=== PATIENT | female | born 1960 | race Two or more races ===

== ENCOUNTER 2016-11-11 12:19 | Emergency (ER) | payer BC ==
--- NOTE | 2016-11-11 12:27 | ER Document Report ---
ED Medical Screen (RME) <JILLIANMAXIMO - Last Filed: 11/11/16 12:24> <MAXIMUS HENSLEY - Last Filed: 11/13/16 05:38> - General Stated Complaint: COUGH Notes: 56 yo female c/o cough x 1 month, worse x last week. cough worse at night. productive. no fever. no hx/o pneumonia. lungs CTA, Sat 95% (MAXIMO WALSH) - Related Data Allergies/Adverse Reactions: No Known Allergies Allergy (Verified 03/18/14 13:23) Past Medical History - Past Medical History Cardiac Medical History: Reports: Hx Coronary Artery Disease, Hx Heart Attack - x2, Hx Hypercholesterolemia, Hx Hypertension Denies: Hx Atrial Fibrillation, Hx Congestive Heart Failure, Hx DVT Psychiatric Medical History: Reports: Hx Anxiety Past Surgical History: Reports: Hx Cardiac Catheterization - x 2( last 06/2012) , Hx Tubal Ligation - Immunizations Hx Diphtheria, Pertussis, Tetanus Vaccination: Yes - 2007 <WALSHMAXIMO - Last Filed: 11/11/16 12:24> Course - Laboratory Result Diagrams: 11/11/16 12:30 11/11/16 12:30 <MAXIMUS HENSLEY - Last Filed: 11/13/16 05:38> - Vital Signs Vital signs: Temp Pulse Resp BP Pulse Ox 98.3 F 78 16 147/78 H 93 11/11/16 17:22 11/11/16 17:22 11/11/16 17:22 11/11/16 17:22 11/11/16 17:22 - Laboratory Laboratory results interpreted by me: 11/11/16 11/11/16 12:30 12:30 Plt Count 583 H Sodium 145.8 H Doctor's Discharge <JILLIANMAXIMO - Last Filed: 11/11/16 12:24> <MAXIMUS HENSLEY - Last Filed: 11/13/16 05:38> - Discharge Clinical Impression: Pneumonia Condition: Stable Disposition: HOME, SELF-CARE Instructions: Azithromycin ([facility]), Corticosteroid Medication ([facility]), Pneumonia ( [facility]) Additional Instructions: REST, DRINK PLENTY OF FLUIDS. MEDS DIRECTED. FOLLOW UP WITH DR. CALVERT IF NOT IMPROVING IN 3-4 DAYS. RETURN TO E.R. IF YOU GET WORSE, ANY TIME. Prescriptions: Azithromycin [Zithromax 250 mg Tablet] 250 mg PO ASDIR PRN #6 tablet PRN Reason: Prednisone 10 mg PO QID #12 tablet Referrals: ITZEL CALVERT MD [Primary Care Provider] - Follow up as needed
[2016-11-11 12:58] LABS: ABSOLUTE BASOPHILS # (AUTO) 0.1 10^3/uL (0.0-0.2); ABSOLUTE EOSINOPHILS # (AUTO) 0.2 10^3/uL (0.0-0.6); ABSOLUTE MONOCYTES (AUTO) 0.8 10^3/uL (0.1-1.4); ABSOLUTE NEUT (AUTO) 6.4 10^3/uL (1.7-8.2); BASOPHILS % (AUTO) 1.4 % (0-2); EOSINOPHILS % (AUTO) 1.8 % (0-6); HEMATOCRIT 40.6 % (36.0-47.0); HEMOGLOBIN 13.5 g/dL (12.0-15.5); HGB HCT DIFFERENCE -0.1; LYMPHOCYTES % (AUTO) 20.9 % (13-45); MEAN CORPUSCULAR HEMOGLOBIN 28.4 pg (27.0-33.4); MEAN CORPUSCULAR HGB CONC 33.3 g/dL (32.0-36.0); MEAN CORPUSCULAR VOLUME 85 fl (80-97); MONOCYTES % (AUTO) 8.8 % (3-13); RED BLOOD COUNT 4.76 10^6/uL (3.72-5.28); RED CELL DISTRIBUTION WIDTH 13.4 % (11.5-14.0); SEGMENTED NEUTROPHILS % (AUTO) 67.1 % (42-78); WHITE BLOOD COUNT 9.5 10^3/uL (4.0-10.5)
[2016-11-11 13:07] LABS: ALANINE AMINOTRANSFERASE 31 U/L (9-52); ALBUMIN 4.1 g/dL (3.5-5.0); ALKALINE PHOSPHATASE 125 U/L (38-126); ANION GAP 15 (5-19); ASPARTATE AMINO TRANSFERASE 21 U/L (14-36); BILIRUBIN,DIRECT 0.2 mg/dL (0.0-0.4); BILIRUBIN,TOTAL 0.7 mg/dL (0.2-1.3); BLOOD UREA NITROGEN 12 mg/dL (7-20); CALCIUM 9.8 mg/dL (8.4-10.2); CARBON DIOXIDE 25 mmol/L (22-30); CHLORIDE 106 mmol/L (98-107); CREATININE RESULT 0.53 mg/dL (0.52-1.25); GLUCOSE 97 mg/dL (75-110); POTASSIUM 4.2 mmol/L (3.6-5.0); SODIUM 145.8 mmol/L (137-145); TOTAL PROTEIN 7.5 g/dL (6.3-8.2)
--- NOTE | 2016-11-11 16:49 | ER Document Report ---
ED Respiratory Problem - General Chief Complaint: Cough Stated Complaint: COUGH Mode of Arrival: Ambulatory Information source: Patient TRAVEL OUTSIDE OF THE [place] IN LAST 30 DAYS: No - HPI Patient complains to provider of: Cough Onset: Other - 1 MONTH Duration: Intermittent episodes Initiating Event: URI Quality of pain: Other - SORENESS Context: denies: Hx asthma, Hx COPD, Smoker Cough: Nonproductive Associated symptoms: Cough. denies: Chills, Fever, Wheezing Similar symptoms previously: No Recently seen / treated by doctor: No - Related Data Allergies/Adverse Reactions: No Known Allergies Allergy (Verified 03/18/14 13:23) Past Medical History - General Information source: Patient - Social History Smoking Status: Unknown if Ever Smoked Chew tobacco use (# tins/day): No Frequency of alcohol use: None Drug Abuse: None Lives with: Spouse/Significant other Family History: CAD Patient has suicidal ideation: No Patient has homicidal ideation: No - Past Medical History Cardiac Medical History: Reports: Hx Coronary Artery Disease, Hx Heart Attack - x2, Hx Hypercholesterolemia, Hx Hypertension Denies: Hx Atrial Fibrillation, Hx Congestive Heart Failure, Hx DVT Renal/ Medical History: Denies: Hx Peritoneal Dialysis Psychiatric Medical History: Reports: Hx Anxiety Past Surgical History: Reports: Hx Cardiac Catheterization - x 2( last 06/2012) , Hx Tubal Ligation - Immunizations Hx Diphtheria, Pertussis, Tetanus Vaccination: Yes - 2007 Review of Systems - Review of Systems Constitutional: No symptoms reported. denies: Chills, Diaphoresis EENT: No symptoms reported Cardiovascular: No symptoms reported Respiratory: See HPI Gastrointestinal: No symptoms reported Genitourinary: No symptoms reported Female Genitourinary: Post menopausal Musculoskeletal: No symptoms reported Skin: No symptoms reported Neurological/Psychological: No symptoms reported Physical Exam - Vital signs Vitals: Temp Pulse Resp BP Pulse Ox 98.5 F 82 14 149/80 H 95 11/11/16 12:23 11/11/16 12:23 11/11/16 12:23 11/11/16 12:23 11/11/16 12:23 Interpretation: Hypertensive. No: Tachycardic, Tachypneic, Febrile - General General appearance: Appears well, Alert In distress: None - HEENT Head: Normocephalic Eyes: Normal Conjunctiva: Normal Ears: Normal Nasal: Normal Mouth/Lips: Normal Mucous membranes: Normal - Respiratory Respiratory status: No respiratory distress Breath sounds: Rhonchi - BILAT. BASES, MORE ON RIGHT - Cardiovascular Rhythm: Regular Heart sounds: Normal auscultation - Abdominal Inspection: Normal Distension: No distension Bowel sounds: Normal - Back Back: Normal - Extremities General upper extremity: Normal inspection General lower extremity: Normal inspection - Neurological Neuro grossly intact: Yes Cognition: Normal Orientation: AAOx4 - Psychological Associated symptoms: Normal affect, Normal mood - Skin Skin Temperature: Warm Skin Moisture: Dry Skin Color: Normal Skin Turgor: Elastic Course - Vital Signs Vital signs: Temp Pulse Resp BP Pulse Ox 98.5 F 82 14 149/80 H 95 11/11/16 12:23 11/11/16 12:23 11/11/16 12:23 11/11/16 12:23 11/11/16 12:23 - Laboratory Result Diagrams: 11/11/16 12:30 11/11/16 12:30 Laboratory results interpreted by me: 11/11/16 11/11/16 12:30 12:30 Plt Count 583 H Sodium 145.8 H Discharge - Discharge Clinical Impression: Pneumonia Qualifiers: Pneumonia type: due to unspecified organism Laterality: right Lung location: lower lobe of lung Qualified Code(s): J18.1 - Lobar pneumonia, unspecified organism Condition: Stable Disposition: HOME, SELF-CARE Instructions: Pneumonia ([facility]), Azithromycin ([facility]), Corticosteroid Medication ( [facility]) Additional Instructions: REST, DRINK PLENTY OF FLUIDS. MEDS DIRECTED. FOLLOW UP WITH DR. CALVERT IF NOT IMPROVING IN 3-4 DAYS. RETURN TO E.R. IF YOU GET WORSE, ANY TIME. Prescriptions: Azithromycin [Zithromax 250 mg Tablet] 250 mg PO ASDIR PRN #6 tablet PRN Reason: Prednisone 10 mg PO QID #12 tablet Referrals: ITZEL CALVERT MD [Primary Care Provider] - Follow up as needed
[2016-11-11 17:31] VITALS: BP 147/78
== END 2016-11-11 17:32 | disposition home or self-care (01) ==
LOC: ER 12:19
DX: J18.1 Lobar pneumonia, unspecified organism (principal); R05 Cough
CPT/HCPCS: 36415; 71020; 80053; 85025; 99284

== ENCOUNTER 2016-11-16 00:43 | Emergency (ER) | payer BC ==
[2016-11-16] MEDS ORDERED: HYDROCODONE/ACETAMINOPHEN 5-325 MG TABLET PO ONE (04:04)
[2016-11-16 05:30] LABS: ABSOLUTE BASOPHILS # (AUTO) 0.1 10^3/uL (0.0-0.2); ABSOLUTE LYMPHOCYTES (AUTO) 1.9 10^3/uL (0.5-4.7); ABSOLUTE MONOCYTES (AUTO) 1.1 10^3/uL (0.1-1.4); ABSOLUTE NEUT (AUTO) 7.6 10^3/uL (1.7-8.2); BASOPHILS % (AUTO) 0.5 % (0-2); EOSINOPHILS % (AUTO) 0.4 % (0-6); HEMOGLOBIN 13.4 g/dL (12.0-15.5); HGB HCT DIFFERENCE 0.2; MEAN CORPUSCULAR HEMOGLOBIN 28.7 pg (27.0-33.4); MEAN CORPUSCULAR HGB CONC 33.4 g/dL (32.0-36.0); MEAN CORPUSCULAR VOLUME 86 fl (80-97); MONOCYTES % (AUTO) 10.6 % (3-13); RED BLOOD COUNT 4.66 10^6/uL (3.72-5.28); RED CELL DISTRIBUTION WIDTH 13.7 % (11.5-14.0); SEGMENTED NEUTROPHILS % (AUTO) 70.5 % (42-78); WHITE BLOOD COUNT 10.7 10^3/uL (4.0-10.5)
[2016-11-16] MEDS ORDERED: LEVOFLOXACIN 750 MG TABLET PO ONE (05:45)
[2016-11-16 05:50] LABS: ALANINE AMINOTRANSFERASE 34 U/L (9-52); ALBUMIN 3.8 g/dL (3.5-5.0); ALKALINE PHOSPHATASE 95 U/L (38-126); ANION GAP 14 (5-19); ASPARTATE AMINO TRANSFERASE 19 U/L (14-36); BILIRUBIN,DIRECT 0.2 mg/dL (0.0-0.4); BILIRUBIN,TOTAL 0.5 mg/dL (0.2-1.3); BLOOD UREA NITROGEN 17 mg/dL (7-20); CALCIUM 9.3 mg/dL (8.4-10.2); CARBON DIOXIDE 22 mmol/L (22-30); CHLORIDE 107 mmol/L (98-107); CREATININE RESULT 0.52 mg/dL (0.52-1.25); GLUCOSE 104 mg/dL (75-110); POTASSIUM 4.3 mmol/L (3.6-5.0); SODIUM 142.6 mmol/L (137-145)
[2016-11-16] MEDS ORDERED: NORMAL SALINE 1000 ML 1,000 ML IV ONE (06:06)
--- NOTE | 2016-11-16 07:23 | ER Document Report ---
ED Respiratory Problem - General Chief Complaint: Rib Pain Stated Complaint: RIB PAIN/RIGHT SIDE Mode of Arrival: Ambulatory Information source: Patient Notes: 56-year-old female presents to the emergency department complaining of progressively worsening right lower chest/rib pain over the last 6 days. Patient reports was seen emergency department approximately 5 days ago and diagnosed with pneumonia. States took course of azithromycin as directed but symptoms are persistent. Reports right lower chest pain worse with deep breathing seems to be worse today. States pain is sharp and non-radiating. Reports associated nonproductive cough and mild shortness of breath. Denies fever, hemoptysis, nausea or vomiting. TRAVEL OUTSIDE OF THE [place] IN LAST 30 DAYS: No - HPI Patient complains to provider of: Cough, Hurts to breath Onset: Last week Duration: Worse/persistent Initiating Event: URI Quality of pain: Sharp Severity: Moderate Pain Level: 3 Short of Breath: Mild Chest pain/discomfort: Right Cough: Nonproductive At home treatment: Oral steroids Similar symptoms previously: Yes Recently seen / treated by doctor: Yes - Related Data Allergies/Adverse Reactions: No Known Allergies Allergy (Verified 11/16/16 01:25) Past Medical History - General Information source: Patient - Social History Smoking Status: Never Smoker Frequency of alcohol use: None Drug Abuse: None Lives with: Family Family History: CAD Patient has suicidal ideation: No Patient has homicidal ideation: No - Past Medical History Cardiac Medical History: Reports: Hx Coronary Artery Disease, Hx Heart Attack - x2, Hx Hypercholesterolemia, Hx Hypertension Denies: Hx Atrial Fibrillation, Hx Congestive Heart Failure, Hx DVT Renal/ Medical History: Denies: Hx Peritoneal Dialysis Psychiatric Medical History: Reports: Hx Anxiety Past Surgical History: Reports: Hx Cardiac Catheterization - x 2( last 06/2012) , Hx Tubal Ligation - Immunizations Hx Diphtheria, Pertussis, Tetanus Vaccination: Yes - 2007 Review of Systems - Review of Systems Constitutional: No symptoms reported EENT: No symptoms reported Cardiovascular: No symptoms reported Respiratory: See HPI Gastrointestinal: No symptoms reported Genitourinary: No symptoms reported Female Genitourinary: No symptoms reported Musculoskeletal: No symptoms reported Skin: No symptoms reported Hematologic/Lymphatic: No symptoms reported Neurological/Psychological: No symptoms reported -: Yes All other systems reviewed and negative Physical Exam - Vital signs Vitals: Temp Pulse Resp BP Pulse Ox 98.8 F 94 18 135/90 H 95 11/16/16 01:25 11/16/16 01:25 11/16/16 01:25 11/16/16 01:25 11/16/16 01:25 - General General appearance: Appears well, Alert In distress: None - HEENT Head: Normocephalic, Atraumatic Eyes: Normal Pupils: PERRL Ears: Normal External canal: Normal Tympanic membrane: Normal Sinus: Normal Nasal: Normal Mouth/Lips: Normal Mucous membranes: Normal, Moist Pharynx: Normal Neck: Normal - Respiratory Respiratory status: No respiratory distress, Other - Shallow breaths due to pain. No: Labored, Tachypnea Chest status: Nontender, Pain with cough, Pain with deep breathing Breath sounds: Normal Chest palpation: Normal. No: Flail segment, [place] frothy sputum, Purulent sputum , Subcutaneous emphysema, Sucking chest wound, Tender, Ecchymosis, Wounds, Other - Cardiovascular Rhythm: Regular Heart sounds: Normal auscultation Murmur: No Pulses: Normal: Radial, Posterior tibial, Dorsalis pedis Normal capillary refill: Yes - Abdominal Inspection: Normal Distension: No distension Bowel sounds: Normal Tenderness: Nontender Organomegaly: No organomegaly - Extremities General upper extremity: Normal inspection, Nontender, Normal color, Normal ROM , Normal strength, Normal temperature. No: Edema General lower extremity: Normal inspection, Nontender, Normal color, Normal ROM , Normal strength, Normal temperature, Normal weight bearing. No: Edema, Ximena' s sign - Neurological Neuro grossly intact: Yes Cognition: Normal Orientation: AAOx4 [place] Coma Scale Eye Opening: Spontaneous Duncan Coma Scale Verbal: Oriented [place] Coma Scale Motor: Obeys Commands Duncan Coma Scale Total: 15 Speech: Normal Motor strength normal: LUE, RUE, LLE, RLE Sensory: Normal - Skin Skin Temperature: Warm Skin Moisture: Dry Skin Color: Normal Course - Re-evaluation Re-evalutation: 11/16/16 07:53 Patient hemodynamically stable, in no distress, afebrile. Patient able to ambulate independently and room air without desaturation or dyspnea. Labs unremarkable. Chest x-ray shows persistent area of consolidation right lower lobe. CTA was obtained after consultation with ED physician Dr. Young due to concern for possible PE secondary to pain worse with breathing and lack of fever , leukocytosis, and productive cough. CTA was negative for PE and showed area of pneumonic consolidation. Patient appears stable for outpatient treatment as curb 65 score is 0 and pneumonia severity index score is <51 (47 = low risk). Will prescribe course of Levaquin. Patient agrees with home care, follow-up with PCP, ED return precautions. - Vital Signs Vital signs: Temp Pulse Resp BP Pulse Ox 98.8 F 94 19 143/92 H 94 11/16/16 01:25 11/16/16 01:25 11/16/16 05:20 11/16/16 05:20 11/16/16 05:33 Selected Entries 11/16/16 11/16/16 01:25 05:20 Heart Rate ( 74 Monitors) Respiratory 19 Rate Blood Pressure 143/92 H O2 Sat by Pulse 95 Oximetry - Laboratory Result Diagrams: 11/16/16 04:40 11/16/16 04:40 Laboratory results interpreted by me: 11/16/16 04:40 WBC 10.7 H Plt Count 457 H - Diagnostic Test Radiology reviewed: Image reviewed, Reports reviewed Discharge - Discharge Clinical Impression: Pneumonia Qualifiers: Pneumonia type: due to unspecified organism Laterality: right Lung location: lower lobe of lung Qualified Code(s): J18.1 - Lobar pneumonia, unspecified organism Condition: Stable Disposition: HOME, SELF-CARE Additional Instructions: PNEUMONIA: Your examination indicates that you have pneumonia. This is an infection of the lung tissue, usually caused by bacteria or a virus. Symptoms include cough, fever, shaking chills, chest pain, shortness of breath, and coughing up bloody sputum. Treatment for bacterial pneumonia includes rest, antibiotics for 10 to 14 days, increasing your clear liquid intake, a cool mist humidifier at your bedside, and fever medication. Often, a repeat chest X-ray is performed in a few weeks--even if you feel better--to ascertain whether the infection has completely resolved and no underlying lung problem is present. You should call the physician if you develop persistent vomiting, high fever that does not respond to fever medication, increasing shortness of breath , confusion, or lethargy. Also, failure to improve within two to three days is an indication for re-examination. Atelectasis Your symptoms are due to partial collapse of the lung, called atelectasis. When lung air sacs aren't filled properly with air, they can collapse. This is common after surgery. It may occur whenever breathing is weak or painful. To correct the collapse, we need to get your lung air sacs to open. Do breathing exercises for the next two days. Every 15 minutes while awake, rapidly suck in a full breath and hold it a few seconds. Sometimes we'll prescribe a machine to measure your progress. Call or return if there's increasing shortness of breath, fever or chills, increasing chest pain, productive cough, or coughing of blood. ANTIBIOTIC THERAPY: You have been given an antibiotic prescription. It's important that you take all the medication, unless instructed otherwise by your physician. Failure to complete the entire course can result in relapse of your condition. Common side effects of antibiotics include nausea, intestinal cramping, or diarrhea. Women may develop vaginal yeast infections, and babies can get yeast (thrush) in the mouth following the use of antibiotics. Contact your physician if you develop significant side effects from this medication. Allergy to this antibiotic can result in hives, wheezing, faintness, or itching. If symptoms of allergy occur, stop the medication and call the doctor. LEVOFLOXACIN: You have been given an antibacterial agent, levofloxacin (Levaquin). This medicine is not related to the penicillins, sulfas, cephalosporins, or tetracyclines. It is often given to patients who are allergic to these drugs. It has been chosen for you either because other drugs are not appropriate, or because of the nature of your problem. Levaquin should not be taken with antacids, as these can decrease its effectiveness. It can be taken without regard to meals. LEVAQUIN SHOULD NOT BE TAKEN BY CHILDREN, NURSING WOMEN, OR WOMEN. Although Levaquin is usually well-tolerated, common side effects can include nausea and diarrhea. Contact your doctor if you experience any unusual symptoms while on this medication, such as joint pain or swelling, shortness of breath, wheezing, faintness, or hives. Oral Narcotic Medication You have been given a prescription for pain control. This medication is a narcotic. It's best taken with food, as nausea can result if taken on an empty stomach. Don't operate machinery or drive within six hours of taking this medication. Do not combine this medicine with alcohol, or with any medication which can cause sedation (such as cold tablets or sleeping pills) unless you get permission from the physician. Narcotics tend to cause constipation. If possible, drink plenty of fluids and eat a diet high in fiber and fruits. FOLLOW-UP CARE: Continue taking your previously prescribed medications as directed. Drink plenty of fluids. Follow-up with your primary care provider tomorrow. Return to the Emergency Department for any worsening symptoms or concerns. Prescriptions: Hydrocodone/Acetaminophen [[place] 5-325 mg Tablet] 1 tab PO Q6H PRN #10 tablet PRN Reason: Levofloxacin [Levaquin 750 mg Tablet] 750 mg PO DAILY 7 Days Forms: Elevated Blood Pressure Referrals: ITZEL CALVERT MD [Primary Care Provider] - Follow up tomorrow
[2016-11-16 09:55] VITALS: BP 144/86
== END 2016-11-16 09:55 | disposition home or self-care (01) ==
LOC: ER 00:43
DX: J18.1 Lobar pneumonia, unspecified organism (principal); R07.81 Pleurodynia; R05 Cough; R06.02 Shortness of breath
CPT/HCPCS: 99285; 36415; 85025; 80053; 71020; 71275; J7030

== ENCOUNTER → 2016-12-16 | Outpatient (CLI) | payer BC | LOC: RAD 10:38 | PROVIDERS: ATTEND Internal Medicine | DX: J18.1 Lobar pneumonia, unspecified organism (principal) | CPT/HCPCS: 71020 ==

== ENCOUNTER → 2017-04-27 | Outpatient (CLI) | payer BC ==
[2017-04-27 14:17] LABS: THYROID STIMULATING HORMONE 0.23 uIU/mL (0.47-4.68)
== END ==
LOC: OD 12:04
PROVIDERS: ATTEND Internal Medicine
DX: E03.8 Other specified hypothyroidism (principal)
CPT/HCPCS: 36415; 84439; 84443

== ENCOUNTER 2018-02-06 13:54 | Emergency (ER) | payer BC ==
[2018-02-06] MEDS ORDERED: MORPHINE SULFATE 10 MG/ML INJ IV ONE (14:59)
[2018-02-06] MEDS ORDERED: DIPH/PERTUSS(ACELL)/TETANUS VAC/PF 0.5 ML SYR (>=10YO) IM ONE (15:00)
--- NOTE | 2018-02-06 15:03 | ER Document Report ---
ED Fall - General Chief Complaint: Fall Stated Complaint: FALL Time Seen by Provider: 02/06/18 14:58 Information source: Patient Notes: Patient is a 57-year-old female that presents today status post fall from a tree. Patient fell 10 feet from a tree cutting down tree limbs. witnessed the fall as he was holding the lateral. Patient fell onto grass. Patient fell onto the back of her head. No loss of consciousness. Patient is not on blood thinning medications. Patient was holding a chain saw that was not active and this hit her in the chin when she fell. Patient complains of pain only to her chin. She actually denies any headache, neck pain, rib pain, back pain, or extremity pain. Last tetanus shot is unknown. TRAVEL OUTSIDE OF THE [place] IN LAST 30 DAYS: No - HPI Occurred: Just prior to arrival Where: Outdoors Context: Fell from height Associated symptoms: None Location of injury/pain: Other - See above Quality of pain: [place]y Severity: Mild Pain Level: 2 Prehospital interventions: C-collar - Related data Allergies/Adverse Reactions: No Known Allergies Allergy (Verified 11/16/16 01:25) Past Medical History - General Information source: Patient - Social History Smoking Status: Unknown if Ever Smoked Cigarette use (# per day): No Chew tobacco use (# tins/day): No Smoking Education Provided: No Frequency of alcohol use: None Drug Abuse: None Family History: CAD - Past Medical History Cardiac Medical History: Reports: Hx Coronary Artery Disease, Hx Heart Attack - x2, Hx Hypercholesterolemia, Hx Hypertension Denies: Hx Atrial Fibrillation, Hx Congestive Heart Failure, Hx DVT Renal/ Medical History: Denies: Hx Peritoneal Dialysis Psychiatric Medical History: Reports: Hx Anxiety Past Surgical History: Reports: Hx Cardiac Catheterization - x 2( last 06/2012) , Hx Tubal Ligation - Immunizations Hx Diphtheria, Pertussis, Tetanus Vaccination: Yes - 2007 Review of Systems - Review of Systems EENT: denies: Blurred vision, Nose discharge Cardiovascular: denies: Chest pain, Dizziness, Lightheaded Respiratory: denies: Cough, Short of breath Gastrointestinal: denies: Vomiting Musculoskeletal: denies: Leg swelling Neurological/Psychological: Other - no slurred speech -: Yes All other systems reviewed and negative Physical Exam - Vital signs Vitals: Temp Pulse Resp Pulse Ox 98.7 F 102 H 14 96 02/06/18 13:55 02/06/18 13:55 02/06/18 13:55 02/06/18 13:55 Notes: Reviewed vital signs and nursing note as charted by RN. CONSTITUTIONAL: Alert and oriented and responds appropriately to questions. Well -appearing; well-nourished HEAD: Normocephalic; atraumatic EYES: PERRL; Conjunctivae clear, sclerae non-icteric ENT: Normal nose; no rhinorrhea; stellate laceration to the chin with some swelling. Cervical collar is currently in place and I am not able to fully examine the mandible NECK: Supple without meningismus; non-tender along the midline spine with no step-offs noted CARD: Regular rate and rhythm; no murmurs, symmetric distal pulses RESP: Normal chest excursion without splinting or tachypnea; no tenderness to the anterior posterior ribs upon palpation; breath sounds clear and equal bilaterally ABD/GI: Normal bowel sounds; non-distended; soft, non-tender to deep palpation of all 4 quadrants of the abdomen BACK: The back appears normal and is non-tender to palpation EXT: Normal ROM in all joints; non-tender to palpation; no cyanosis, no effusions, no edema SKIN: See above NEURO: Moves all extremities equally; Motor and sensory function intact PSYCH: The patient's mood and manner are appropriate. Grooming and personal hygiene are appropriate. Course - Re-evaluation Re-evalutation: 02/06/18 15:03 Given the history and physical examination we will order CT scan of the head, neck, and face. I will provide IV morphine. I do not believe any laboratory values necessary at this time. Tdap will be updated. 02/06/18 16:26 CT scan imaging as recorded. Patient still has no focal neurological deficits. 02/06/18 18:12 I have sutured the laceration appropriately. We will place bacitracin to the patient. Patient will be discharged home with strict return precautions. - Vital Signs Vital signs: Temp Pulse Resp BP Pulse Ox 98.6 F 80 18 150/84 H 96 02/06/18 16:26 02/06/18 16:26 02/06/18 16:26 02/06/18 16:26 02/06/18 16:26 Procedures - Laceration/Wound Repair Face Wound length (cm): 1.5 Wound's Depth, Shape: Stellate Laceration pre-procedure: Chloraprep applied Anesthetic type: 1% Lidocaine w/epi Wound explored: Clean Wound Repaired With: Sutures Suture Size/Type: 5:0, Prolene Number of Sutures: 3 Post-procedure wound care: Sterile dressing applied Post-procedure NV exam normal: Yes Complications: No Discharge - Discharge Clinical Impression: Accidental fall Qualifiers: Encounter type: initial encounter Qualified Code(s): W19.XXXA - Unspecified fall, initial encounter Closed head injury Qualifiers: Encounter type: initial encounter Qualified Code(s): S09.90XA - Unspecified injury of head, initial encounter Contusion of face Qualifiers: Encounter type: initial encounter Qualified Code(s): S00.83XA - Contusion of other part of head, initial encounter Chin laceration Qualifiers: Encounter type: initial encounter Qualified Code(s): S01.81XA - Laceration without foreign body of other part of head, initial encounter Condition: Good Disposition: HOME, SELF-CARE Additional Instructions: Come back immediately for any weakness or numbness, vomiting, difficulty breathing or swallowing, or any other acute problems. Return in 5 days for suture removal. Please apply bacitracin ointment to the lesion twice daily until healing. Once the sutures have been removed please apply sunblock to the wound daily for 1 year. Referrals: ITZEL CALVERT MD [Primary Care Provider] - Follow up as needed
--- NOTE | 2018-02-06 15:36 | RADIOLOGY REPORT (SQ) ---
EXAM DESCRIPTION: CT HEAD WITHOUT; CT CERVICAL SPINE WITHOUT COMPLETED DATE/TIME: 02/06/2018 3:11 pm REASON FOR STUDY: Fall from tree COMPARISON: See below. TECHNIQUE: Axial images acquired through the brain and cervical spine without intravenous contrast. Images reviewed with brain, subdural, lung, soft tissue and bone windows. Reconstructed coronal and sagittal MPR images reviewed. Images stored on PACS. All CT scanners at this facility use dose modulation, iterative reconstruction, and/or weight based d osing when appropriate to reduce radiation dose to as low as reasonably achievable (ALARA). [facility]: Dose Right [facility]: CareDose [facility]: Dose Right [facility]: Teradose 4D [facility]: Smart LoungeUp RADIATION DOSE: CT Rad equipment meets quality standard of care and radiation dose reduction techniq ues were employed. CTDIvol: 53.2 mGy. DLP: 991 mGy-cm.; CT Rad equipment meets quality standard of ca re and radiation dose reduction techniques were employed. CTDIvol: 15.3 mGy. DLP: 290 mGy-cm. mGy. LIMITATIONS: None. FINDINGS: Brain 2013 comparison. 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 Normal CSF containing spaces. No hemorrhage or mass or shift or fracture. Clear paranasal sinuses. Cervical spine No priors. No malalignment. Mild degenerative changes. No fracture. Soft tissues intact. Lung ap ices clear. IMPRESSION: 1. No acute intracranial abnormality. 2. No acute cervical spine abnormality. TECHNICAL DOCUMENTATION: JOB ID: [id number] Quality ID # [id number]: Final reports with documentation of one or more dose reduction techniques (e.g., Au tomated exposure control, adjustment of the mA and/or kV according to patient size, use of iterative reconstruction technique) 2010 [employer]- All Rights Reserved Reading location - IP/workstation name: [email or web address]
--- NOTE | 2018-02-06 15:36 | RADIOLOGY REPORT (SQ) ---
EXAM DESCRIPTION: CT HEAD WITHOUT; CT CERVICAL SPINE WITHOUT COMPLETED DATE/TIME: 02/06/2018 3:11 pm REASON FOR STUDY: Fall from tree COMPARISON: See below. TECHNIQUE: Axial images acquired through the brain and cervical spine without intravenous contrast. Images reviewed with brain, subdural, lung, soft tissue and bone windows. Reconstructed coronal and sagittal MPR images reviewed. Images stored on PACS. All CT scanners at this facility use dose modulation, iterative reconstruction, and/or weight based d osing when appropriate to reduce radiation dose to as low as reasonably achievable (ALARA). [facility]: Dose Right [facility]: CareDose [facility]: Dose Right [facility]: Teradose 4D [facility]: Smart [employer] RADIATION DOSE: CT Rad equipment meets quality standard of care and radiation dose reduction techniq ues were employed. CTDIvol: 53.2 mGy. DLP: 991 mGy-cm.; CT Rad equipment meets quality standard of ca re and radiation dose reduction techniques were employed. CTDIvol: 15.3 mGy. DLP: 290 mGy-cm. mGy. LIMITATIONS: None. FINDINGS: Brain 2013 comparison. 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 Normal CSF containing spaces. No hemorrhage or mass or shift or fracture. Clear paranasal sinuses. Cervical spine No priors. No malalignment. Mild degenerative changes. No fracture. Soft tissues intact. Lung ap ices clear. IMPRESSION: 1. No acute intracranial abnormality. 2. No acute cervical spine abnormality. TECHNICAL DOCUMENTATION: JOB ID: [id number] Quality ID # 436: Final reports with documentation of one or more dose reduction techniques (e.g., Au tomated exposure control, adjustment of the mA and/or kV according to patient size, use of iterative reconstruction technique) 2010 [employer]- All Rights Reserved Reading location - IP/workstation name: [email or web address]
--- NOTE | 2018-02-06 16:23 | RADIOLOGY REPORT (SQ) ---
EXAM DESCRIPTION: CT FACIAL AREA WITHOUT COMPLETED DATE/TIME: 02/06/2018 3:57 pm REASON FOR STUDY: 19; fall; face and jaw pain COMPARISON: None. TECHNIQUE: Noncontrasted images through the facial bones and orbits windowed for bone and soft tissu e. Additional coronal and sagittal reconstructed images reviewed. All images stored on PACS. All CT scanners at this facility use dose modulation, iterative reconstruction, and/or weight based d osing when appropriate to reduce radiation dose to as low as reasonably achievable (ALARA). [facility]: Dose Right [facility]: CareDose [facility]: Dose Right [facility]: Teradose 4D [facility]: Smart [employer] RADIATION DOSE: CT Rad equipment meets quality standard of care and radiation dose reduction techniq ues were employed. CTDIvol: 30.4 mGy. DLP: 583 mGy-cm. mGy. LIMITATIONS: None. FINDINGS: FACIAL BONES: No fracture or bone lesion. ORBITS: Intact. No fracture. Symmetric intact globes and retroorbital soft tissues. PARANASAL SINUSES: Clear. No significant mucosal thickening, mass or fluid. No nasal polyps. [place] sinus outlets are patent. SOFT TISSUES: 1.5 cm rounded subcutaneous density anterior to the mandible just to the left of midlin e. Overlying laceration. This probably represents a small subcutaneous hematoma. No underlying fra cture. INFERIOR BRAIN: Limited view. No acute findings. OTHER: No other significant finding. IMPRESSION: No evidence of facial fracture. TECHNICAL DOCUMENTATION: JOB ID: [id number] Quality ID # [id number]: Final reports with documentation of one or more dose reduction techniques (e.g., Au tomated exposure control, adjustment of the mA and/or kV according to patient size, use of iterative reconstruction technique) 2010 [employer]- All Rights Reserved Reading location - IP/workstation name: [email or web address]
[2018-02-06] MEDS ORDERED: LIDOCAINE 1%/EPINEPHRINE INJ 20 ML VIAL INJ ONE (16:29)
[2018-02-06] MEDS ORDERED: BACITRACIN ZINC OINTMENT 15 GM TP ONE (18:11)
[2018-02-06 18:57] VITALS: BP 159/99
== END 2018-02-06 18:57 | disposition home or self-care (01) ==
LOC: ER 13:54
PROC: 0HQ1XZZ Repair Face Skin, External Approach (ICD-10-PCS; principal; 2018-02-06)
DX: S01.81XA Laceration without foreign body of other part of head, initial encounter (principal); S09.90XA Unspecified injury of head, initial encounter; S00.83XA Contusion of other part of head, initial encounter; R51 Headache; W14.XXXA Fall from tree, initial encounter; Y93.89 Activity, other specified; I25.10 Atherosclerotic heart disease of native coronary artery without angina pectoris; I10 Essential (primary) hypertension
CPT/HCPCS: 99284; 90471; 96374; 70450; 70486; 72125; 90715; 12011; L0120; J3490; J2270

== ENCOUNTER 2018-11-14 13:33 | Emergency (ER) | payer BC ==
--- NOTE | 2018-11-14 14:36 | ER Document Report ---
ED Medical Screen (RME) - General Chief Complaint: Headache Stated Complaint: HEADACHE Time Seen by Provider: 11/14/18 14:28 Primary Care Provider: ITZEL CALVERT MD [Primary Care Provider] - Follow up as needed Mode of Arrival: Ambulatory Information source: Patient Notes: Patient is a 58-year-old female with past medical history of hypertension who presents to the emergency department with complaint of extreme headache. Patient reports she had one episode of vomiting last night, states today she had another episode and immediately after the vomiting she began having a severe headache to the right side of her head. She denies any history of migraines. States she has never had a headache like this before. Patient came straight to the emergency room from work. Exam: Patient alert, oriented and able to answer all questions appropriately. No focal neurological deficit noted. Spoke with attending physician, Dr. Lundberg regarding patient and he would like me to order a head CT at this time. I have greeted and performed a rapid initial assessment of this patient. A comprehensive ED assessment and evaluation of the patient, analysis of test results and completion of the medical decision making process will be conducted by additional ED providers. Dictation of this chart was performed using voice recognition software; therefore, there may be some unintended grammatical errors. TRAVEL OUTSIDE OF THE [place] IN LAST 30 DAYS: No - Related Data Allergies/Adverse Reactions: No Known Allergies Allergy (Verified 11/16/16 01:25) Past Medical History - Past Medical History Cardiac Medical History: Reports: Hx Coronary Artery Disease, Hx Heart Attack - x2, Hx Hypercholesterolemia, Hx Hypertension Denies: Hx Atrial Fibrillation, Hx Congestive Heart Failure, Hx DVT Renal/ Medical History: Denies: Hx Peritoneal Dialysis Psychiatric Medical History: Reports: Hx Anxiety Past Surgical History: Reports: Hx Cardiac Catheterization - x 2( last 06/2012), Hx Tubal Ligation - Immunizations Hx Diphtheria, Pertussis, Tetanus Vaccination: Yes - 2007 Physical Exam - Vital signs Vitals: Temp Pulse Resp BP Pulse Ox 98.1 F 99 16 150/97 H 97 11/14/18 13:46 11/14/18 13:46 11/14/18 13:46 11/14/18 13:46 11/14/18 13:46 Course - Vital Signs Vital signs: Temp Pulse Resp BP Pulse Ox 98.1 F 99 16 150/97 H 97 11/14/18 13:46 11/14/18 13:46 11/14/18 13:46 11/14/18 13:46 11/14/18 13:46 Doctor's Discharge - Discharge Referrals: ITZEL CALVERT MD [Primary Care Provider] - Follow up as needed
--- NOTE | 2018-11-14 15:03 | RADIOLOGY REPORT (SQ) ---
EXAM DESCRIPTION: CT HEAD WITHOUT COMPLETED DATE/TIME: 11/14/2018 2:45 pm REASON FOR STUDY: vomited, now severe PATEL COMPARISON: 02/06/2018 TECHNIQUE: Axial images acquired through the brain without intravenous contrast. Images reviewed wi th bone, brain and subdural windows. Additional sagittal and coronal reconstructions were generated. Images stored on PACS. All CT scanners at this facility use dose modulation, iterative reconstruction, and/or weight based d osing when appropriate to reduce radiation dose to as low as reasonably achievable (ALARA). [facility]: Dose Right [facility]: CareDose [facility]: Dose Right [facility]: Teradose 4D [facility]: Smart [employer] RADIATION DOSE: CT Rad equipment meets quality standard of care and radiation dose reduction techniq ues were employed. CTDIvol: 53.2 mGy. DLP: 1044 mGy-cm. mGy. LIMITATIONS: None. FINDINGS: VENTRICLES: Normal size and contour. CEREBRUM: No masses. No hemorrhage. No midline shift. No evidence for acute infarction. There is a focal air decreased attenuation in the left basal ganglia stable from prior study and consistent wit h old injury or infarct. There is a stable subcortical lesion in the left centrum semiovale. CEREBELLUM: No masses. No hemorrhage. No alteration of density. No evidence for acute infarction. EXTRAAXIAL SPACES: No fluid collections. No masses. ORBITS AND GLOBE: No intra- or extraconal masses. Normal contour of globe without masses. CALVARIUM: No fracture. PARANASAL SINUSES: No fluid or mucosal thickening. SOFT TISSUES: No mass or hematoma. OTHER: No other significant finding. IMPRESSION: Small left-sided infarcts as described. No acute intracranial event. EVIDENCE OF ACUTE STROKE: NO. COMMENT: Quality ID # 436: Final reports with documentation of one or more dose reduction techniques (e.g., Automated exposure control, adjustment of the mA and/or kV according to patient size, use of iterative reconstruction technique) TECHNICAL DOCUMENTATION: JOB ID: [id number] [employer]- All Rights Reserved Reading location - IP/workstation name: [email or web address]
[2018-11-14] MEDS ORDERED: PROCHLORPERAZINE EDISYLATE INJ 10 MG/2 ML VIAL IV ONE (18:10)
[2018-11-14] MEDS ORDERED: DIPHENHYDRAMINE HCL 50 MG/ML VIAL IV ONE (18:12)
--- NOTE | 2018-11-14 20:05 | ER Document Report ---
ED General - General Chief Complaint: Headache Stated Complaint: HEADACHE Time Seen by Provider: 11/14/18 14:28 Primary Care Provider: ITZEL CALVERT MD [Primary Care Provider] - Follow up tomorrow Mode of Arrival: Ambulatory Information source: Patient Notes: This is a 58-year-old female with a history of hypertension, remote history of [place] (not requiring stent) who presents to the emergency room after developing a headache. Patient states she had an episode of nausea and vomiting followed by the headache at approximately 6 PM. She states she went to sleep and when she woke up the headache was gone. She does state that between 9 AM and 1 PM today while she was at work, she did experience some nausea. After 1 PM, she did vomit again and had a headache to the right side of the face. She states that the headache is since resolved (after medicines from triage). She denies any recent fever, chills, or illnesses. She denies any focal motor weakness. Denies any visual changes. TRAVEL OUTSIDE OF THE [place] IN LAST 30 DAYS: No - HPI Onset: Yesterday Onset/Duration: Gradual Quality of pain: No pain Severity: None Pain Level: Denies Associated symptoms: Nausea, Vomiting. denies: Chest pain, Fever, Shortness of breath Exacerbated by: Denies Relieved by: Denies Similar symptoms previously: Yes Recently seen / treated by doctor: No - Related Data Allergies/Adverse Reactions: No Known Allergies Allergy (Verified 11/16/16 01:25) Past Medical History - General Information source: Patient - Social History Smoking Status: Never Smoker Cigarette use (# per day): No Chew tobacco use (# tins/day): No Frequency of alcohol use: None Drug Abuse: None Lives with: Family Family History: CAD Patient has suicidal ideation: No Patient has homicidal ideation: No - Past Medical History Cardiac Medical History: Reports: Hx Coronary Artery Disease, Hx Heart Attack - x2, Hx Hypercholesterolemia, Hx Hypertension Denies: Hx Atrial Fibrillation, Hx Congestive Heart Failure, Hx DVT Renal/ Medical History: Denies: Hx Peritoneal Dialysis Psychiatric Medical History: Reports: Hx Anxiety Past Surgical History: Reports: Hx Cardiac Catheterization - x 2( last 06/2012), Hx Tubal Ligation - Immunizations Hx Diphtheria, Pertussis, Tetanus Vaccination: Yes - 2007 Review of Systems - Review of Systems Constitutional: denies: Chills, Fever EENT: No symptoms reported Cardiovascular: denies: Chest pain, Palpitations, Heart racing Respiratory: denies: Cough, Short of breath Gastrointestinal: No symptoms reported Genitourinary: No symptoms reported Female Genitourinary: No symptoms reported Musculoskeletal: No symptoms reported Skin: No symptoms reported Hematologic/Lymphatic: No symptoms reported Neurological/Psychological: See HPI Physical Exam - Vital signs Vitals: Temp Pulse Resp BP Pulse Ox 98.1 F 99 16 150/97 H 97 11/14/18 13:46 11/14/18 13:46 11/14/18 13:46 11/14/18 13:46 11/14/18 13:46 Notes: Physical exam: GENERAL: Patient is alert and oriented x3, no acute distress, denies any headache at this time. HEAD: Atraumatic, normocephalic. EYES: Pupils equal round and reactive to light, extraocular movements intact, sclera anicteric, conjunctiva are normal. ENT: TMs normal, nares patent, oropharynx clear without exudates. Moist mucous membranes. NECK: Normal range of motion, supple without obvious mass or JVD. LUNGS: Breath sounds clear to auscultation bilaterally and equal. No wheezes rales or rhonchi. HEART: Regular rate and rhythm without murmurs, rubs or gallops. ABDOMEN: Soft, normoactive bowel sounds. No tenderness to palpation. No guarding, no rebound. No masses appreciated. EXTREMITIES: Normal range of motion, no pitting or edema. No clubbing or cyanosis. NEUROLOGICAL: Cranial nerves II through XII grossly intact. Visual melchor are intact. Motor is 5/5, sensory is grossly intact, cerebellar (finger to nose) is good. Normal speech, moving all extremities. PSYCH: Normal mood, normal affect. SKIN: Warm, Dry, normal turgor, no rashes or lesions noted. Course - Vital Signs Vital signs: Temp Pulse Resp BP Pulse Ox 98.1 F 99 16 150/97 H 97 11/14/18 13:46 11/14/18 13:46 11/14/18 13:46 11/14/18 13:46 11/14/18 13:46 - Laboratory Result Diagrams: 11/14/18 18:25 11/14/18 18:25 Laboratory results interpreted by me: 11/14/18 11/14/18 11/14/18 18:25 18:25 20:18 RBC 5.59 H Hgb 16.2 H Hct 47.5 H Glucose 120 H Calcium 11.3 H AST 41 H ALT 57 H Alkaline Phosphatase 133 H Total Protein 9.1 H Urine Blood SMALL H Ur Leukocyte Esterase TRACE H - Diagnostic Test Radiology reviewed: Image reviewed, Reports reviewed - MRI of the brain shows small lacunar infarct which is remote. There is no acute stroke or bleed. - EKG Interpretation by Me Rhythm: NSR - EKG shows normal sinus rhythm with a ventricular rate of 80, no acute ST-T wave changes. EKG was compared with one performed on February 22, 2013 Discharge - Discharge Clinical Impression: Headache resolved Condition: Stable Disposition: HOME, SELF-CARE Additional Instructions: As we discussed the CT of the head and the MRI of the brain did show evidence of a very small remote stroke. There is no evidence that this was recent. And this is nothing to do with the symptoms he experienced last night and today. Your blood work was otherwise okay. I do want you to take it easy over the next day, continue current medicines. Follow-up with Dr. Schaffer: Please bring him a copy of today's labs as well as CT and MRI reports. Call his office in the morning. Tell them you were in the emergency room and the ER doctor wanted you followed up. Return to the emergency room for worsening headache. Forms: Return to Work Referrals: ITZEL CALVERT MD [Primary Care Provider] - Follow up tomorrow
[2018-11-14 20:13] LABS: ABSOLUTE LYMPHOCYTES (AUTO) 2.7 10^3/uL (0.5-4.7); ABSOLUTE MONOCYTES (AUTO) 0.6 10^3/uL (0.1-1.4); ABSOLUTE NEUT (AUTO) 6.1 10^3/uL (1.7-8.2); BASOPHILS % (AUTO) 0.4 % (0-2); EOSINOPHILS % (AUTO) 0.2 % (0-6); HEMATOCRIT 47.5 % (36.0-47.0); HEMOGLOBIN 16.2 g/dL (12.0-15.5); LYMPHOCYTES % (AUTO) 28.5 % (13-45); MEAN CORPUSCULAR HGB CONC 34.1 g/dL (32.0-36.0); MEAN CORPUSCULAR VOLUME 85 fl (80-97); MONOCYTES % (AUTO) 6.2 % (3-13); PLATELET COUNT 362 10^3/uL (150-450); RED BLOOD COUNT 5.59 10^6/uL (3.72-5.28); RED CELL DISTRIBUTION WIDTH 13.2 % (11.5-14.0); SEGMENTED NEUTROPHILS % (AUTO) 64.7 % (42-78); TOTAL CELLS COUNTED % (AUTO) 100 %; WHITE BLOOD COUNT 9.4 10^3/uL (4.0-10.5)
[2018-11-14 20:18] LABS: ALANINE AMINOTRANSFERASE 57 U/L (9-52); ALKALINE PHOSPHATASE 133 U/L (38-126); ANION GAP 14 (5-19); ASPARTATE AMINO TRANSFERASE 41 U/L (14-36); BILIRUBIN,DIRECT 0.4 mg/dL (0.0-0.4); BLOOD UREA NITROGEN 15 mg/dL (7-20); CALCIUM 11.3 mg/dL (8.4-10.2); CARBON DIOXIDE 23 mmol/L (22-30); CHLORIDE 104 mmol/L (98-107); GLUCOSE 120 mg/dL (75-110); POTASSIUM 4.2 mmol/L (3.6-5.0); TOTAL PROTEIN 9.1 g/dL (6.3-8.2)
[2018-11-14 20:45] LABS: APPEARANCE,URINE CLEAR; BILIRUBIN,URINE NEGATIVE (NEGATIVE); COLOR,URINE YELLOW; GLUCOSE, URINE NEGATIVE (NEGATIVE); KETONES,URINE NEGATIVE (NEGATIVE); LEUKOCYTE ESTERASE,URINE TRACE (NEGATIVE); NITRITE,URINE NEGATIVE (NEGATIVE); PROTEIN,URINE NEGATIVE (NEGATIVE); URINE SPECIFIC GRAVITY 1.015; UROBILINOGEN,URINE NEGATIVE mg/dL (<2.0)
--- NOTE | 2018-11-14 21:55 | RADIOLOGY REPORT (SQ) ---
EXAM DESCRIPTION: MR BRAIN WITHOUT IV CONTRAST COMPLETED DATE/TME: 11/14/2018 19:48 CLINICAL HISTORY: 58 years, Female, right sided headache COMPARISON: CT from today's date TECHNIQUE: 278 Images stored on PACS. LIMITATIONS: None. FINDINGS: Sagittal midline anatomic structures show an unremarkable appearance to the pituitary and suprasellar regions. The globes are intact. The paranasal sinuses and mastoid air cells are unremarkable. Normal flow void in visualized intracranial vessels. The visualized cranial nerve complex these are unremarkable. Small foci of low signal on gradient sequences in the basal ganglia regions likely reflects basal ganglia calcifications when correlating with CT. No convincing evidence for acute intracranial hemorrhage. Diffusion-weighted images show no evidence for acute infarct. No mass or midline shift. A few foci of increased FLAIR/T2 white matter signal in the periventricular and subcortical regions, consistent with sequelae of small vessel ischemic change. Remote lacunar infarct of the left basal ganglia.. IMPRESSION: Negative for acute intracranial abnormality. Minor atrophy and small vessel ischemic change. Remote lacunar infarct left basal ganglia.. copyright 2010 [employer]- All Rights Reserved
[2018-11-14 22:44] VITALS: BP 169/90
--- NOTE | 2018-11-15 07:57 | EKG REPORT ---
SEVERITY:- ABNORMAL ECG - SINUS RHYTHM INCOMPLETE RIGHT BUNDLE BRANCH BLOCK LEFT VENTRICULAR HYPERTROPHY INFERIOR INFARCT, AGE INDETERMINATE ANTERIOR INFARCT, AGE INDETERMINATE PROLONGED QT INTERVAL : Confirmed by: Lloyd Bianchi MD 15-Nov-2018 07:57:08
== END 2018-11-14 22:44 | disposition home or self-care (01) ==
LOC: ER 13:33
DX: R51 Headache (principal); R11.2 Nausea with vomiting, unspecified; I25.10 Atherosclerotic heart disease of native coronary artery without angina pectoris; E78.00 Pure hypercholesterolemia, unspecified; I10 Essential (primary) hypertension; I25.2 Old myocardial infarction; Z98.51 Tubal ligation status
CPT/HCPCS: 93005; 99284; 96374; 96375; 36415; 85025; 80053; 81001; 70551; 70450; 93010; J1200; J0780